=== PATIENT | female | born 1945 | race Caucasian/White ===

== ENCOUNTER → 2016-10-30 | Day surgery (SDC) | payer MEDICARE ==
[~2016-10-30] VITALS: Ht 154.9 cm; Wt 45.7 kg
[2016-10-30] VITALS (7 sets, daily range): BP systolic 123–150; BP diastolic 55–68; PULSE 56–70; RESP 10–18; O2SAT 97–100
[~2016-10-30] MED LIST: ATRV10T PO; Atropine 0.4 mg/mL Inj IVPUSH PRN; Bupivacaine-MPF 0.5% 30 mL Inj INFILTRATE ONE; CALC600T12 PO; CHOL200025 PO; CeFAZolin Inj 2 GM in IV Premix 1 EACH IV ONE; Dexamethasone 4 mg/mL Inj ONE; EPHEDrine Sulfate 50 mg/mL Inj IVPUSH PRN; EPHEDrine/NS 5 mg/mL 5 mL Syringe ONE; Glycopyrrolate 0.2 MG/ML 1mL Inj ONE; HYDROmorphone 1 mg/mL Inj IVPUSH PRN; HYDROmorphone 1 mg/mL Inj ONE; Labetalol 5 mg/mL 20 mL Inj IV PRN; Lactated Ringer's 1,000 ML IV ONE; Lactated Ringer's 1,000 ML IV SCH; Lactated Ringer's 500 ML IV PRN; MULT-1018 PO; MetoCLOpramide 5 mg/mL 2 mL Inj IVPUSH PRN; Neostigmine 1 mg/mL 10 mL Inj ONE; Ondansetron 2 mg/mL 2 mL Inj IVPUSH PRN; Ondansetron 2 mg/mL 2 mL Inj ONE; POLY17PO6 PO; Phenylephrine 10,000 mCg/mL Inj IVPUSH PRN; Propofol 10,000 mCg/mL 20 mL Inj ONE; Rocuronium 10 mg/mL 5 mL Inj ONE; fentaNYL-PF 50 mCg/mL 2 mL Inj IVPUSH PRN; fentaNYL-PF 50 mCg/mL 2 mL Inj ONE; oxyCODONE-Acetamin 5-325 mg Tablet PO PRN
--- NOTE | 2016-10-30 10:35 | PCM.HPANE ---
Patient Data Date of Service: Oct 30, 2016 Surgeon Admitting Provider: Attending Provider:Dania Bowman MD Primary Care Physician:Patricia Sanchez MD Other Provider:Ignacio Lora Anesthesia Reason for Visit Cholecystitis Ht/WT & BMI Height (Feet): 5 Height (Inches): 1.00 Weight (Kilograms): 45.7 Body Mass Index 19.00 Allergies Coded Allergies: No Known Allergies (Unverified , 10/27/16) Past Anesthesia History Anesthesia History: Denies:: Abnormal Airway, Anesthesia Reactions (no prior surgery), Difficult Intubation, Fam Anesthesia Reaction, Malignant Hyperthermia Diabetes History Hx Diabetes?: No MRSA MRSA: No Medications Home Meds Incl Beta Jas: No Reported Medications Polyethylene Glycol 3350 (Miralax)17 Gm Powd.pack17 Gm PO DAILY 10/27/16 Cholecalciferol (Vitamin D3) (Vitamin D3)2,000 Unit Tablet2,000 Unit PO DAILY 10/27/16 Multivitamin (Multi Vitamin Daily)1 Each Tablet1 Each PO DAILY 30 Days Ref 0 10/27/16 Atorvastatin (Lipitor)10 Mg Tab5 Mg PO DAILY Ref 0 10/27/16 Calcium Carbonate (Calcium)600 Mg [id number] Mg PO DAILY 10/27/16 Discontinued Reported Medications [fiber-con] No Conflict [id number] Mg DAILY 10/27/16 History History of ENT Problems?: No HEENT History: Denies:: Abnormal Airway Difficult Intubation Dysphagia Hearing Problem Sinus Problem TMJ Denture Type: None Teeth Condition: Within Normal Limits Hx of Heart Problems?: No Cardiovascular History: Denies:: AICD Abdominal Aortic Aneurism Atrial Fibrillation Chest Pain Congestive Heart Failure Coronary Artery Disease Edema Heart Murmur Hypertension Irregular Heartbeat Pacemaker Peripheral Vascular Hx of Respiratory Problem?: No Respiratory History: Denies:: Asthma COPD Emphysema Oxygen Administration Pneumonia Tuberculosis Use of C-PAP Machine Hx Neurologic Problems?: No Neurological History: Denies:: Alzheimer's Disease CVA Headaches Multiple Sclerosis Parkinson's Disease Seizures Hx of GI Problems?: Yes Hx of Problems?: No Genitourinary History: Denies:: Kidney Stones Urinary Tract Infection HX of Peritoneal Dialysis: No Female Hx: Denies:: Currently (post menopausal) Problems with Breasts? Skin History: Denies:: History Skin Disorders? Pressure Ulcers Hx Musculoskeletal Problems?: Yes Musculoskeletal History: Denies:: Back Injury Degenerative Joint Fibromyalgia Joint Replacement Musculoskeletal Trauma Myasthenia Gravis Rheumatoid Arthritis Systemic Lupus Hx of Psycho/Social Problems?: No Hx Surgeries?: No (no prior) Hx Any Other Health Problems?: No Other History: Denies:: Cancer Thyroid Disease History Blood Transfusions: Positive for:: Accept Blood Products? Denies:: Blood Transfusions Hx Diabetes: No Hx Alcohol Use: YesAlcoholic Drinks Per Day: one glass dailyHx Substance Use: NoHave You Smoked inLast 12 mo: No Stop/Bang P-Blood Pressure: treated: No B- Body Mass Index > 35 kg/m2: No A- Age over 50: Yes N- Neck Large Circumference: No G- Gender Male: No Risk Assessment Category Category 1A: Patient has history of documented sleep apnea, and HAS NOT received any narcotic, sedative or anesthesia administration during this stay. Category 1B: Patient has history of documented sleep apnea, and HAS received any narcotic , sedative or anesthesia administration during this stay Category 2: Patient has SUSPECTED Obstructive Sleep Apnea, and HAS received any narcotic , sedative or anesthesia administration during this stay. Category 3: Patient has SUSPECTED Obstructive Sleep Apnea and HAS NOT received narcotic, sedative or anesthesia administration during this stay. Category 4: Outpatient in Procedural Areas with known sleep apnea or who screen positive for High Risk via the STOP/BANG questionnaire. Exam Exam Vital Signs Vital Signs Date Time Temp Pulse Resp B/P Pulse Ox O2 Delivery O2 Flow Rate FiO2 10/30/16 09:09 36.5 65 18 150/64 100 Room Air General Appearance: Alert, Oriented X3 HEENT/AIRWAY: MP 1 Lungs: Clear to Auscultation Heart: Exam Unremarkable Meds/Labs/Diagnostics Admission Meds Current Medications Gabapentin (Neurontin) 600 mg PREOP ONCE PO Last administered on 10/30/16 08: 58; Start 10/30/16 at 06:00; Stop 10/30/16 at 06:01; Status DC Celecoxib (CeleBREX) 200 mg PREOP ONCE PO Last administered on 10/30/16 08:58 ; Start 10/30/16 at 06:00; Stop 10/30/16 at 06:01; Status DC Acetaminophen 1000 mg 1,000 mg PREOP ONCE PO Last administered on 10/30/16 08 :57; Start 10/30/16 at 06:00; Stop 10/30/16 at 06:01; Status DC Lactated Ringer's (Lr) 1,000 ml @ ud STK-MED ONCE IV Last administered on 10/30t 08:55; Start 10/30/16 at 08:55; Stop 10/30/16 at 08:56; Status DC Plan Impression Patient chart reviewed, patient interviewed and anesthestic plan with risks, benefits, and alternatives discussed, and informed consent obtained. ASA Physical Status: ASA2 Mod Systemic Disease Anesthetic Plan: GA Bene/Risks/Altern/Consents: Yes HP Complete Prior to Induction: Yes Sher Lemus MD Oct 30, 2016 10:35
--- NOTE | 2016-10-30 13:00 | PCM.SURGOP ---
Surgical Operative Report Date of Service: Oct 30, 2016 Pre Operative Diagnosis Chronic cholecystitis Post Operative Diagnosis Chronic cholecystitis Procedure: Laparoscopic cholecystectomy Surgeon and Business Solutions Analyst: Surgeon: Dania Bowman MD Assistants: Vamshi Betancourt MD R3; Sher Butts PA-C; Nora Bruce MS3 An ambulance assistant was required for dissection and retraction. Indication for Procedure This is a 70-year-old woman who presented with chronic right upper quadrant postprandial pain. An ultrasound was performed which revealed cholelithiasis, thickened gallbladder wall, and pericholecystic fluid, consistent with chronic cholecystitis. Therefore she was scheduled for laparoscopic cholecystectomy. Findings: Significant thick adhesions and gallbladder wall edema, consistent with acute on chronic cholecystitis. There were palpable gallstones within the gallbladder as well. Procedure Details The patient was brought to the operating room and placed in supine position. General endotracheal anesthesia was smoothly induced. Antibiotics were infused. A warming blanket and SCDs were placed. A foot board was placed. The operative field was prepped and draped in sterile fashion. A pause was performed to confirm the correct patient, procedure, site, and side. A transverse 10 mm incision was made just below the umbilicus. The abdomen was entered under direct vision using a Teresa port. Three additional 5 mm ports were placed in the epigastrium and right upper quadrant. The gallbladder was identified and lifted cephalad. Dissection then proceeded to identify the cystic duct, cystic artery, and to expose the bottom one third of the cystic plate. This was a somewhat tedious dissection given that the adhesions were thick and chronic. Once there were two and only two structures entering the gallbladder, the cystic duct was clipped on the gallbladder and patient side, and the cystic artery was clipped twice on the patient's side and once on the gallbladder side, and both were then divided. The gallbladder was then removed from its bed on the liver with electrocautery. Prior to completely removing the gallbladder, a final look was taken at the stump of the cystic artery and cystic duct, and there was no bleeding or bile leak. The gallbladder was then fully removed from the liver and placed in an EndoCatch bag and removed. The three 5 mm ports were removed under direct vision, the 10 mm mid abdominal port was removed, and a [id number] 0 PDS was used to close the fascia. There was no fascial defect at the end of the case. 0.5% Marcaine with epinephrine was infused at all port sites for postoperative analgesia. The skin was closed with subcuticular 4-0 Monocryl. Sterile dressings were placed. The patient was awakened from general anesthesia and taken to the postoperative care unit in good condition. Complications There were no periprocedural complications identified. Surgical Specimen Removed: Yes Specimen sent to Pathology: Yes Surgical Specimen description: Gallbladder Anesthetic Plan: GA Grafts, Implants: None Output, Estimated Blood Loss: 3 (ml) Blood Administration during baez: No Dania Bowman MD Oct 30, 2016 13:00
--- NOTE | 2016-10-30 13:16 | PCM.DISURG ---
Surgical Discharge Instruction Date of Service Oct 30, 2016 Dates of Hospitalization Date of Hospital Admission Providers Admitting Physician: Primary Care Physician: Patricia Sanchez MD Attending Physician: Dania Bowman MD Discharge Diagnosis Post Operative diagnosis Chronic cholecystitis Diet Discharge Diet: No restrictions Activity Discharge Activity-General: Be up and about, Activity as pain allows, No lifting >15 pounds for 2 weeks, No driving while taking narcotic Dressing and Incisional Care Dressing Care: Allow Steri Stripes to fall off, Remove outer dressing after 24 hrs Hygiene: May shower after (24 jpirs), DO NOT soak incision under water, NO bathtub, hot tub or whirlpool Follow Up Plan Follow Up Plan In general surgery clinic in 2-4 weeks. Please call at any time with questions or concerns. Call your provider for: Fever, Chills, Increasing abdominal pain, Wound redness , Discharge @ incision, pus discharge Gabino Betancourt MD Oct 30, 2016 13:16
--- NOTE | 2016-10-30 13:48 | PCM.ANEP1 ---
Post Anesthesia PACU Phase 1 Assessment Date of Service: Oct 30, 2016 Vital Signs Vital Signs Date Time Temp Pulse Resp B/P Pulse Ox O2 Delivery O2 Flow Rate FiO2 10/30/16 13:24 56 13 137/60 99 Simple Mask 10 10/30/16 13:15 58 13 137/66 99 Simple Mask 10 10/30/16 13:10 60 12 132/68 99 Simple Mask 10 10/30/16 13:05 36.4 63 10 137/65 98 Simple Mask 10 10/30/16 09:09 36.5 65 18 150/64 100 Room Air Anesthetic Administered: GA Level of Alertness: Sleepy, easy to arouse THAKKAR's with Equal Strength: Yes Pain: Yes Nausea or Vomiting: No CV Function & Hydration Stable: Yes Airway Device: Oxygen Delivery: Simple Mask Lungs: Normal Air Movement PACU Phase 2 Assessment Patient Instructions Provided: N/A Sher Lemus MD Oct 30, 2016 13:48
--- NOTE | 2016-11-03 17:11 | PATH ---
SURGICAL PATHOLOGY Attending Physician:Dania Bowman MD CASE STATUS: Signed Out PATIENT NAME: CATIE NEWMAN PID: [id number] : 1945 DATE COLLECTED:10/30/2016 20:50 SPECIMEN: Gallbladder CLINICAL HISTORY: CHOLECYSITIS 1). GALLBLADDER FINAL DIAGNOSIS: Gallbladder, Cholecystectomy: -Chronic cholecystitis. ICD10: K81.1 GROSS DESCRIPTION: The specimen is received in formalin, labeled with the patient's name, sublabeled as gallbladder, and consists of an opened gallbladder (length-7.2 cm, diameter-1.7 cm) with an occluded cystic duct. No lymph nodes are identified. The serosa is whatley, smooth and shiny. The mucosa is noonan smooth and flat. The wall is up to 0.4 cm thick. No calculi are present. No nodules, masses or lesions are identified. Section code: (A) gallbladder, cystic duct resection margin and credit representative tissue adjacent to duct; (B) 2 longitudinal sections from the fundus; (C) 2 serial sections from the body. 10/31/16 ICD-9 CODES: CPT CODES: 1: 45378 Electronically Signed Out Zay Escalante MD [facility] [address], [place] [address] Technical component performed at [facility], [address] [place] [address] Ave[address], [place], [address]
== END | disposition home or self-care (01) ==
LOC: SAS 08:44
PROVIDERS: ATTEND Surgery
DX: K81.1 Chronic cholecystitis (principal)
CPT/HCPCS: 47562; J0690; J1100; J1170; J1885; J2405; J2704; J2710; J3010; J7120